=== PATIENT | female | born 1945 | race Caucasian/White ===

== ENCOUNTER → 2022-03-31 10:14 | Outpatient (BNVA) | payer MEDICARE, BC, SELFPAY | PROVIDERS: PCP Internal Medicine; Visit Provider Internal Medicine Pulmonary Disease | DX: J43.9 Emphysema, unspecified (principal); R06.00 Dyspnea, unspecified | CPT/HCPCS: 99202 ==

== ENCOUNTER 2022-04-02 12:44 | Outpatient (REF) | payer MEDICARE, BC, SELFPAY ==
--- NOTE | 2022-04-02 16:22 | PFT_ITS ---
INDICATION: Dyspnea. SPIROMETRY: FEV1 to FVC 82% with an FEV1 of 1.81 L, which is 92% predicted and FVC of 2.19 L, which is 33% predicted. No significant response to bronchodilators noted. Maximum voluntary ventilation 98% predicted. LUNG VOLUMES: Total lung capacity 79% predicted with an expiratory reserve volume of 57% predicted. DIFFUSION CAPACITY: DLCO 85% predicted. INTERPRETATION: No obstructive ventilatory defect. No significant response to bronchodilators noted. Normal maximum voluntary ventilation. The patient does have a restrictive ventilatory defect consistent with very mild restrictive lung disease. In addition to that, diffusion capacity is within normal limits. Consider additional imaging studies to assess for the restrictive lung disease, although is very mild. Clinical correlation warranted. Robert Ramos MD MR/MODL / [id number]
== END 2022-04-02 12:45 | disposition home or self-care (01) ==
LOC: HO.RESP 12:44
PROVIDERS: PCP Internal Medicine; Visit Provider Internal Medicine Pulmonary Disease
DX: R06.00 Dyspnea, unspecified (principal)
CPT/HCPCS: 94060; 94727; 94729

== ENCOUNTER → 2022-04-22 09:15 | Outpatient (BNVA) | payer MEDICARE, BC, SELFPAY | PROVIDERS: PCP Internal Medicine; Visit Provider Internal Medicine Pulmonary Disease | DX: R06.00 Dyspnea, unspecified (principal); J43.9 Emphysema, unspecified | CPT/HCPCS: 99212 ==

== ENCOUNTER → 2023-04-30 09:48 | Outpatient (BNVA) | payer MEDICARE, BC, SELFPAY | PROVIDERS: PCP Internal Medicine; Visit Provider Internal Medicine Pulmonary Disease | DX: J43.9 Emphysema, unspecified (principal); R06.00 Dyspnea, unspecified | CPT/HCPCS: 99212 ==